=== PATIENT | male | born 1995 | race African-American/Black ===

== ENCOUNTER 2019-10-07 19:04 | Emergency (ER) | payer OTHER, SELFPAY ==
[2019-10-07 19:09] VITALS: BP 162/82; PULSE 78; RESP 18; TEMP 35.7; O2SAT 100
--- NOTE | 2019-10-07 19:15 | ED.GENADULT ---
HPI - General Adult General Chief complaint: Unspecified Stated complaint: swollen lymph node neck Time Seen by Provider: 10/07/19 19:14 Source: patient Mode of arrival: ambulatory Limitations: no limitations History of Present Illness HPI narrative: Patient is a 24-year-old previously healthy male who presents for evaluation of what he feels is a possible lymph node swelling after each meal. Patient states he has a bump under his jaw that seems to fluctuate in size, consistent with when he eats. He denies any pain. He states that there is something under his tongue that looks swollen. Patient denies fever, chills, difficulty swallowing, history of cancer, weight loss, night sweats. He smokes marijuana, he denies tobacco use or other drug use. Patient does not follow regularly with a primary care physician. Patient denies right-sided swelling. No rashes or other swollen lymph nodes. Related Data Allergies Allergy/AdvReac Type Severity Reaction Status Date / Time No Known Allergies Allergy Unverified 09/18/18 21:23 Review of Systems Review of Systems: Narrative: CONSTITUTIONAL: Denies fever CARDIOVASCULAR: Denies chest pain RESPIRATORY: Denies cough or dyspnea. GASTROINTESTINAL: Denies abdominal pain SKIN: Denies rash MUSCULOSKELETAL: Denies back pain NEUROLOGIC: Denies headache PMFSH Past Medical History Medical History (Updated 10/07/19 @ 19:32 by Evelyn Jefferson MD) No pertinent past medical history Surgical History Surgical History (Updated 10/07/19 @ 19:24 by Evelyn Jefferson MD) No pertinent past surgical history Social History Social History (Updated 10/07/19 @ 19:25 by Evelyn Jefferson MD) Smoking status: Never smoker Alcohol intake: never Substance use: current Substance use type: marijuana Gender identity (if verbalized by the patient): Male Exam Narrative: Exam Narrative: GENERAL: Awake, alert, conversant HEAD: Normocephalic, atraumatic. EYES: PERRLA and EOMI. ENT: Nares clear, no rhinorrhea or epistaxis. Mucous membranes moist. No lymphadenopathy. Swollen left submandibular gland. Right submandibular gland is normal. No cervical or pre-or postauricular lymphadenopathy. Uvula is midline. No gingival edema, erythema or bleeding. No dental caries. Tongue is without any lesions.Pt with left submandibular salivary stone. NECK: Supple. CHEST: No respiratory distress, breathing even and non labored HEART: Regular rate, sinus rhythm ABDOMEN:Non distended, non tender EXTREMITIES: Normal range of motion. No edema. SKIN: Warm, dry, no rash. NEURO:No focal deficits. Alert and oriented x3 Course Course Emergency Course: Patient presented for evaluation of left-sided neck swelling, found to have a left submandibular stone as well as mild left submandibular gland edema without tenderness. No lymphadenopathy of either cervical chain. Patient is tolerating his secretions. No sign of active infection. Will advise ENT follow-up, sour candies, and will prescribe antibiotic in case he develops worsening pain or edema. At this point there does not seem to be severe infection. Patient advised that that he can do at home to also send the stone which include sour candies, massage of the submandibular gland.. Patient then discharged home with ENT and PCP referral. Vital Signs Vital signs: Vital Signs Temperature 35.7 C L 10/07/19 19:09 Pulse Rate 78 10/07/19 19:09 Respiratory Rate 18 10/07/19 19:09 Blood Pressure 162/82 H 10/07/19 19:09 Pulse Oximetry 100 10/07/19 19:09 Temperature 35.7 C L 10/07/19 19:09 Pulse Rate 78 10/07/19 19:09 Respiratory Rate 18 10/07/19 19:09 Blood Pressure 162/82 H 10/07/19 19:09 Pulse Oximetry 100 10/07/19 19:09 Medical Decision Making Vital Signs Vital Signs: Vital Signs Temperature 35.7 C L 10/07/19 19:09 Pulse Rate 78 10/07/19 19:09 Respiratory Rate 18 10/07/19 19:09 Blood Pressure 162/82 H 10/07/19 19:
== END 2019-10-07 19:47 | disposition home or self-care (01) ==
PROVIDERS: Emergency Provider Emergency Medicine
DX: K11.5 Sialolithiasis (principal)
CPT/HCPCS: 99283